=== PATIENT | male | born 1985 | race Caucasian/White ===

== ENCOUNTER 2017-06-18 17:53 | Emergency (ER) | payer BC ==
[2017-06-18] MEDS ORDERED: Ketorolac 60 MG/2 ML SDV IM ONE (18:50)
--- NOTE | 2017-06-18 19:01 | EDM.PDOC ---
ED HPI GENERAL MEDICAL PROBLEM - General Chief Complaint: Back Pain or Injury Stated Complaint: PT HAS BACK PAIN Time Seen by Provider: 06/18/17 17:55 Source of Information: Reports: Patient History Limitations: Reports: No Limitations - History of Present Illness INITIAL COMMENTS - FREE TEXT/NARRATIVE: HISTORY AND PHYSICAL: History of present illness: Patient is a 31-year-old male who presents to the emergency room today with complaints of low back pain. He states that the low back/sacral pain started on 06/16/17 he proceeded to follow up with the chiropractor. He states he received no relief after being adjusted. A shunt is concerned as the chiropractor told him he felt that his back vertebral were not aligned appropriately. He describes the back pain as a tight/full feeling and radiates down bilateral glutes stopping posterior mid thigh bilaterally. Patient is also concerned that he has not had a normal bowel movement and feels that his back pain "inflammation is pushing on my guts". He denies any blood in his stools. His last bowel movement was this morning. He has not tried any iwam-flu-iispbru products to help regulate his stools. 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 Denies any fecal or urinary incontinence. Denies any back injury or trauma. Denies any numbness or tingling to his lower extremities. And is fully ambulatory without any difficulty. Review of systems: As per history of present illness and below otherwise all systems reviewed and negative. Past medical history: As per history of present illness and as reviewed below otherwise noncontributory. Surgical history: As per history of present illness and as reviewed below otherwise noncontributory. Social history: No reported history of drug or alcohol abuse. Family history: As per history of present illness and as reviewed below otherwise noncontributory. Physical exam: General: Cia-fqenj-[id number] 31-year-old male. Well-developed and well- nourished. We'll do speak in full sentences without shortness of breath. Alert and oriented. HEENT: Atraumatic, normocephalic, pupils reactive, negative for conjunctival pallor or scleral icterus, mucous membranes moist, throat clear, neck supple, nontender, trachea midline. Lungs: Clear to auscultation, breath sounds equal bilaterally, chest nontender. Heart: S1S2, regular rate and rhythm Abdomen: Soft, nondistended, nontender. All sounds active. Negative for masses or hepatosplenomegaly. Negative for costovertebral tenderness. Pelvis: Stable nontender. Genitourinary: Deferred. Rectal: Deferred. Extremities: Atraumatic, moves all per self. Patient is able to demonstrate flexion, extension, twisting at the waist. Negative for cords or calf pain. Neurovascular unremarkable. Neuro: Awake, alert, oriented. Cranial nerves II through XII unremarkable. Cerebellum unremarkable. Motor and sensory unremarkable throughout. Exam nonfocal. Due to patient's concern I will obtain a flat and upright of the abdomen along with a sacral x-ray. Patient states he is able to get a ride, therefore I will give him Norflex and Toradol IM. X-ray of the abdomen and sacrum/coccyx area is unremarkable. Prescription for Flexeril and Cataflam have been given. Instructed to follow up with PCP. Patient is agreeable to plan of care and denies any further questions at this time. Diagnostics: X-ray of the sacrum and flat and upright Therapeutics: NorFlex and Toradol Impression: Back pain with sciatica Plan: 1. Please take the Flexeril as prescribed. This medication may cause drowsiness a do not take it when needing to be functioning or driving. Please take the Cataflam as directed, do not take any additional NSAID such as ibuprofen or Aleve with this medication. You may want to take with food to prevent any stomach upset. He may take Tylenol for breakthrough pain. Apply gentle heat to the area 2. Follow-up with your primary care provider in the next 1-2 days. The number has been provided to you. Return to the ED as needed as discussed. Definitive disposition and diagnosis as appropriate pending reevaluation and review of above. low back Pain Score (Numeric/FACES): 8 - Related Data Allergies Allergy/AdvReac Type Severity Reaction Status Date / Time No Known Allergies Allergy Verified 06/18/17 18:20 Home Meds: Home Meds Dextroamphetamine/Amphetamine [Adderall 20 mg Tablet] 20 mg PO TID 06/18/17 [ History] FLUoxetine [PROzac] 0 mg PO ASDIRECTED 06/18/17 [History] Past Medical History - Past Health History Medical/Surgical History: Denies Medical/Surgical History Psychiatric History: Reports: ADHD, Depression - Past Surgical History Musculoskeletal Surgical History: Reports: Other (See Below) Other Musculoskeletal Surgeries/Procedures:: lef sx Social & Family History - Family History Family Medical History: Noncontributory - Tobacco Use Smoking Status *Q: Current Every Day Smoker Years of Tobacco use: 10 Packs/Tins Daily: 1 - Recreational Drug Use Recreational Drug Use: No ED ROS GENERAL - Review of Systems Review Of Systems: ROS reveals no pertinent complaints other than HPI. ED EXAM,LOWER BACK PAIN/INJURY - Physical Exam Exam: See Below (See dictation) Course - Vital Signs Last Recorded V/S: Last Vital Signs Temp 36.7 C 06/18/17 17:53 Pulse 97 06/18/17 17:53 Resp 18 06/18/17 17:53 BP 135/75 06/18/17 17:53 Pulse Ox 97 06/18/17 17:53 - Orders/Labs/Meds Orders: Active Orders 24 hr Category Date Time Status Abdomen 2V AP Flat Upright [CR] Stat Exams 06/18/17 18:50 Taken Sacrum Coccyx Min 2V [CR] Stat Exams 06/18/17 18:50 Taken Orphenadrine [Norflex] Med 06/18/17 19:00 Active 60 mg IM Q12H Medication Orders Orphenadrine Citrate (Norflex) 60 mg IM Q12H JULES Last Admin: 06/18/17 19:28 Dose: 60 mg Meds: Medications Generic Name Dose Route Start Last Admin Trade Name Freq PRN Reason Stop Dose Admin Orphenadrine Citrate 60 mg 06/18/17 19:00 06/18/17 19:28 Norflex IM 60 mg Q12H JULES Administration Discontinued Medications Generic Name Dose Route Start Last Admin Trade Name Freq PRN Reason Stop Dose Admin Ketorolac Tromethamine 60 mg 06/18/17 18:50 06/18/17 19:31 Toradol IM 06/18/17 18:51 60 mg ONETIME ONE Administration Departure - Departure Time of Disposition: 20:15 Disposition: Home, Self-Care 01 Clinical Impression: Back pain with sciatica - Discharge Information Referrals: PCP,None [Primary Care Provider] - Forms: ED Department Discharge Additional Instructions: My general discharge The following information is given to patients seen in the emergency department who are being discharged to home. This information is to outline your options for follow-up care. We provide all patients seen in our emergency department with a follow-up referral. The need for follow-up, as well as the timing and circumstances, are variable depending upon the specifics of your emergency department visit. If you don't have a primary care physician on staff, we will provide you with a referral. We always advise you to contact your personal physician following an emergency department visit to inform them of the circumstance of the visit and for follow-up with them and/or the need for any referrals to a consulting specialist. The emergency department will also refer you to a specialist when appropriate. This referral assures that you have the opportunity for follow-up care with a specialist. All of these measure are taken in an effort to provide you with optimal care, which includes your follow-up. Under all circumstances we always encourage you to contact your private physician who remains a resource for coordinating your care. When calling for follow-up care, please make the office aware that this follow-up is from your recent emergency room visit. If for any reason you are refused follow-up, please contact the [facility] Emergency Department at and asked to speak to the emergency department charge nurse. [facility] [address] [place] [id number] 1. Please take the Flexeril as prescribed. This medication may cause drowsiness a do not take it when needing to be functioning or driving. Please take the Cataflam as directed, do not take any additional NSAID such as ibuprofen or Aleve with this medication. You may want to take with food to prevent any stomach upset. He may take Tylenol for breakthrough pain. Apply gentle heat to the area 2. Follow-up with your primary care provider in the next 1-2 days. The number has been provided to you. Return to the ED as needed as discussed. - My Orders Last 24 Hours: My Active Orders 06/18/17 18:50 Abdomen 2V AP Flat Upright [CR] Stat Sacrum Coccyx Min 2V [CR] Stat 06/18/17 19:00 Orphenadrine [Norflex] 60 mg IM Q12H - Assessment/Plan Last 24 Hours: My Active Orders 06/18/17 18:50 Abdomen 2V AP Flat Upright [CR] Stat Sacrum Coccyx Min 2V [CR] Stat 06/18/17 19:00 Orphenadrine [Norflex] 60 mg IM Q12H
--- NOTE | 2017-06-21 10:02 | CR ---
EXAM DATE: 06/18/17 PATIENT'S AGE: 31 Patient: ANNETTA KERNS Facility: [place], [place] Site . Site : 1985 Study: XRay Abdomen [id number]/13/2017 7:32:02 PM Ordering Physician: Doctor Swanson Final Report: INDICATION: Abdominal pain TECHNIQUE: Abdominal radiograph 4 views COMPARISON: None FINDINGS: Bowel: The bowel gas pattern is normal without evidence of bowel obstruction. Soft tissues: No evidence of pneumoperitoneum present. No sign of soft tissue mass seen. No suspicious calcifications noted. Bones: Unremarkable for age. IMPRESSIONS: 1. Unremarkable radiographs of the abdomen. Dictated by: Jose Antonio Albarran MD @ 06/18/2017 19:57:05 (Electronic Signature) Report Signed by Proxy. MIREYA
--- NOTE | 2017-06-21 10:06 | CR ---
EXAM DATE: 06/18/17 PATIENT'S AGE: 31 Patient: ANNETTA KERNS Facility: [place], [place] Site . Site : 1985 Study: XRay Spine sac/rafael [id number]/13/2017 7:33:47 PM Ordering Physician: Doctor Swanson Final Report: INDICATION: LBP TECHNIQUE: Sacrum/coccyx views COMPARISON: None FINDINGS: Bones: Delete that No fractures or bone lesions. Joint spaces: Unremarkable. Soft tissues: Unremarkable. IMPRESSION: No acute bony abnormality Dictated by Chico Watkins MD @ 06/18/2017 7:54:15 PM Dictated by: Chico Watkins MD @ 06/18/2017 19:54:24 (Electronic Signature) Report Signed by Proxy. [facility] H[facility]ITALRadha
== END 2017-06-18 20:43 | disposition home or self-care (01) ==
LOC: MW.ED 17:53
DX: M54.40 Lumbago with sciatica, unspecified side (principal); F17.210 Nicotine dependence, cigarettes, uncomplicated
CPT/HCPCS: 72220; 74020; 96372; 99283; J1885; J2360